=== PATIENT | female | born 1990 | race Caucasian/White ===

== ENCOUNTER 2024-12-05 04:02 | Emergency (ER) | payer MEDICAID, SELFPAY ==
--- NOTE | ~2024-12-05 | CT_ITS ---
EXAMINATION: CT abdomen pelvis w con DATE: 12/05/2024 05:59 INDICATION: Abdominal pain. TECHNIQUE: Computed tomography (CT) of the abdomen and pelvis was performed with 100 mL Omnipaque 350 intravenous contrast. Automated exposure control and iterative reconstruction technique were employed. The dose-length product was 441.47 mGy-cm. COMPARISON: None. FINDINGS: The visualized portions of the lung bases demonstrate mild atelectasis. There are a few scattered nodules in the lungs measuring up to 7 mm, likely benign given the patient's age. No pleural effusion. The heart size is normal. No pericardial effusion. The liver and spleen are normal. There is a gallstone in the gallbladder, which is normal in size. The pancreas and right adrenal gland are normal. There is a 15 mm mass containing fat in left adrenal gland, consistent with a myelolipoma. The kidneys are normal. There is diverticulosis of the colon without evidence of diverticulitis. There is liquid stool in the colon suggesting diarrhea. The appendix is normal. There is an umbilical hernia containing fat. There are no pathologically enlarged lymph nodes. There are small areas of fat necrosis in anterior abdominal wall. There is no free intraperitoneal fluid. There is mild thoracic and lumbar spondylosis. IMPRESSION: 1. Umbilical hernia containing fat. Reviewed, dictated and finalized at location E.
[2024-12-05 04:04] VITALS: BP 135/79; PULSE 190; RESP 16; TEMP 36.7; O2SAT 99
[2024-12-05 05:07] VITALS: BP 136/89; PULSE 84; RESP 16; O2SAT 99
[2024-12-05 05:13] LABS: BEDSIDEPREGUCG Negative (Negative)
[2024-12-05 05:15] LABS: Hematocrit 38.7 % (37.0-47.0); Hemoglobin 12.5 g/dL (12.0-15.0); Immature Granulocyte Percent A 0.2 % (0-0.5); Lymphocytes Absolute Auto 2.82 K/mm3 (0.9-3.2); Mean Corpuscular HGB Conc 32.3 g/dl (32-36); Mean Corpuscular Hemoglobin 25.3 pg (26-34); Mean Corpuscular Volume 78.3 fl (80-100); Nucleated Red Blood Cells Absolute Auto 0.000 K/mm3 (0.0-0.012); Nucleated Red Blood Cells Perc 0.0 % (0.0-0.2); Platelet Count Result 239 k/mm3 (150-375); Red Blood Count 4.94 M/mm3 (4.2-5.4); White Blood Count 8.3 K/mm3 (4.5-10.0)
[2024-12-05 05:19] LABS: Add Urine Microscopic? YES; Appearance Urine Clear (Clear); Glucose Urine UA Negative (Negative); Leukocyte Esterase Ur Trace LEU/UL (Negative); Nitrate Urine Negative (Negative); Non Pathogenic Casts 0-2; Specific Grav Ur 1.021 (1.001-1.035)
[2024-12-05 05:27] LABS: Alanine Aminotransferase 46 U/L (6-35); Albumin Level 3.6 g/dL (3.5-5.1); Alkaline Phosphatase 108 U/L (38-126); Anion Gap 6 mmol/L (4-12); Aspartate Amino Transferase 25 U/L (14-36); Bilirubin,Total 0.4 mg/dL (0.2-1.3); Blood Urea Nitrogen 16 mg/dL (7-17); Calcium 9.1 mg/dL (8.4-10.2); Carbon Dioxide 23 mmol/L (22-30); Chloride 105 mmol/L (98-107); Estimated CRCL calculation 127 ml/min; Estimated Glomerular Filt Rate > 60; Glucose 103 mg/dL (65-110); Lipase 25 U/L (23-300); Potassium 3.8 mmol/L (3.4-5.0); Sodium 134 mmol/L (137-145); Total Protein 6.6 g/dL (6.3-8.2)
[2024-12-05] MEDS: Please add drug allergy info to patient profile. 1 EACH XX (05:31)
[2024-12-05] MEDS: ONDANSETRON INJ 4 MG/2 ML VIAL IV PUSH (05:32)
[2024-12-05] MEDS: SODIUM CHLORIDE 0.9% IV 1,000 ML 999 ML IV CONT (05:32)
[2024-12-05] MEDS: MORPHINE SULFATE (*CRX) 4 MG/ML INJ IV PUSH (05:37)
--- NOTE | 2024-12-05 06:01 | ED_ITS ---
HPI - General Adult General Chief complaint: Abdominal Pain Stated complaint: abd pain Time Seen by Provider: 12/05/24 04:47 History of Present Illness HPI narrative: Patient 34-year-old female who presents emergency department chief complaint of abdominal pain the patient reports the last several days chest pain in the epigastric region reports a got worse this radiating to her back and down into her lower abdomen the patient reports that she has tried using heating pad without relief patient reports that she has had some nausea but no vomiting denies diarrhea Related Data Allergies Allergy/AdvReac Type Severity Reaction Status Date / Time ciprofloxacin (From Cipro) AdvReac Intermediate Hives Verified 12/05/24 05:31 tramadol AdvReac Intermediate Hives Verified 12/05/24 05:31 Review of Systems 2 Review of Systems: A 10 system review of systems was completed on the patient and is negative except for what is stated in the HPI. Nursing and ancillary documentation was reviewed. Exam 2 Narrative: GENERAL: Well-appearing, well-nourished, and in moderate acute pain distress. HEAD: Normocephalic, atraumatic. EYES: PERRLA and EOMI. ENT: Nares clear, no rhinorrhea or epistaxis. Mucous membranes moist. NECK: Supple. CHEST: Clear to auscultation. No respiratory distress. HEART: Regular rate and rhythm. No murmur heard. Normal peripheral pulses. ABDOMEN: Soft, diffuse tenderness to palpation, nondistended, normal active bowel sounds. EXTREMITIES: Normal range of motion. No edema. SKIN: Warm, dry, no rash. NEURO: No focal deficits. Alert and oriented x3. PSYCH: Normal mood and affect. Course Vital Signs Vital signs: Vital Signs Temperature 36.7 C 12/05/24 04:04 Pulse Rate 190 H 12/05/24 04:04 Respiratory Rate 16 12/05/24 04:04 Blood Pressure 135/79 12/05/24 04:04 Pulse Oximetry 99 12/05/24 04:04 Oxygen Delivery Room Air 12/05/24 04:04 Temperature 36.7 C 12/05/24 04:04 Pulse Rate 84 12/05/24 07:14 Respiratory Rate 14 12/05/24 07:14 Blood Pressure 130/77 12/05/24 07:14 Pulse Oximetry 100 12/05/24 07:14 Oxygen Delivery Room Air 12/05/24 04:04 Medical Decision Making Vital Signs Vital Signs: Vital Signs Temperature 36.7 C 12/05/24 04:04 Pulse Rate 190 H 12/05/24 04:04 Respiratory Rate 16 12/05/24 04:04 Blood Pressure 135/79 12/05/24 04:04 Pulse Oximetry 99 12/05/24 04:04 Oxygen Delivery Room Air 12/05/24 04:04 Temperature 36.7 C 12/05/24 04:04 Pulse Rate 84 12/05/24 07:14 Respiratory Rate 14 12/05/24 07:14 Blood Pressure 130/77 12/05/24 07:14 Pulse Oximetry 100 12/05/24 07:14 Oxygen Delivery Room Air 12/05/24 04:04 Lab Data 12/05/24 05:06 12/05/24 05:06 Labs: Lab Results 12/05/24 12/05/24 Range/Units 05:06 05:07 WBC 8.3 (4.5-10.0) K/mm3 RBC 4.94 (4.2-5.4) M/mm3 Hgb 12.5 (12.0-15.0) g/dL Hct 38.7 (37.0-47.0) % MCV 78.3 L (80-100) fl MCH 25.3 L (26-34) pg MCHC 32.3 (32-36) g/dl RDW 12.4 (11.5-14.5) % Plt Count 239 (150-375) k/mm3 MPV 10.6 H (7.4-10.4) fl Immature Gran % (Auto) 0.2 (0-0.5) % Neut % (Auto) 53.2 (45.5-73.1) % Lymph % (Auto) 34.0 (18.3-44.2) % [place] % (Auto) 9.6 H (2.6-8.5) % Eos % (Auto) 2.9 (0-4.4) % Baso % (Auto) 0.1 L (0.2-1.2) % Lymph # (Auto) 2.82 (0.9-3.2) K/mm3 [place] # (Auto) 0.8 H (0.1-0.6) K/mm3 Eos # (Auto) 0.2 (0-0.3) K/mm3 Baso # (Auto) 0.0 (0.0-0.1) K/mm3 Abs Immat Gran (auto) 0.02 (0.00-0.031) K/mm3 Absolute Neuts (auto) 4.4 (1.3-6.7) K/mm3 Absolute Nucleated RBC 0.000 (0.0-0.012) K/mm3 Nucleated RBC % 0.0 (0.0-0.2) % Sodium 134 L (137-145) mmol/L Potassium 3.8 (3.4-5.0) mmol/L Chloride 105 (98-107) mmol/L Carbon Dioxide 23 (22-30) mmol/L Anion Gap 6 (4-12) mmol/L BUN 16 (7-17) mg/dL Creatinine 0.48 L (0.7-1.0) mg/dL Estim Creat Clear Calc 127 ml/min Estimated GFR > 60 (59 - ) Glucose 103 (65-110) mg/dL Calcium 9.1 (8.4-10.2) mg/dL Total Bilirubin 0.4 (0.2-1.3) mg/dL AST 25 (14-36) U/L ALT 46 H (6-35) U/L Alkaline Phosphatase 108 (38-126) U/L Total Protein 6.6 (6.3-8.2) g/dL Albumin 3.6 (3.5-5.1) g/dL Lipase 25 (23-300) U/L Urine Color Yellow (Yellow) Urine Appearance Clear (Clear) Urine pH 6.0 (5.0-9.0) Ur Specific [place] 1.021 (1.001-1.035) Urine Protein Negative (Negative) mg/dL Urine Glucose (UA) Negative (Negative) mg/dL Urine Ketones Negative (Negative) mg/dL Ur Blood (Man) Negative (Negative) Urine Nitrate Negative (Negative) Urine Bilirubin Negative (Negative) Urine Urobilinogen 1.0 (<2.0) mg/dL Leukocyte Esterase Rfl Trace H (Negative) MATHIEU/UL Urine RBC 0-2 (0-2) /hpf Urine WBC 0-5 (0-3) /hpf Ur Squamous Epith Cells Occasional (Few) /hpf Urine Bacteria None seen /hpf Urine Casts 0-2 POC Urine HCG, Qual Negative (Negative) Discharge Plan Discharge Clinical Impression: Abdominal pain Patient Disposition: Home Condition: Stable Instructions: Antibiotic Form, Abdominal Pain (ED) Additional Instructions: CT scan does not show any acute abnormality you might be about to develop diarrhea. This likely of a viral illness that has triggered this. May take the medicines for stomach cramping and the nausea medication it is recommended that you start with clear liquids on your diet and slowly progress Patient Language: Macedonian Prescriptions: New dicyclomine 20 mg tablet 20 mg PO QID PRN (Reason: abdominal discomfort) Qty: 20 0RF ondansetron 4 mg tablet,disintegrating 4 mg PO Q8H PRN (Reason: nausea and vomiting) Qty: 10 0RF Follow-up/Referrals: PHYSICIAN NOT ON STAFF,NONSTAFF [Primary Care Provider] Time of Disposition: 07:34
[2024-12-05 07:14] VITALS: BP 130/77; PULSE 84; RESP 14; O2SAT 100
[2024-12-05] MEDS: DICYCLOMINE HCL INJ 20 MG/2 ML VIAL IM (07:46)
== END 2024-12-05 07:56 | disposition home or self-care (01) ==
PROVIDERS: Emergency Provider Emergency Medicine
DX: R10.30 Lower abdominal pain, unspecified (principal); K42.9 Umbilical hernia without obstruction or gangrene
CPT/HCPCS: 36415; 74177; 80053; 81001; 81025; 83690; 85025; 96361; 96372; 96374; 96375; 99284; J0500; J2270; J2405; J7030; Q9967